=== PATIENT | female | born 1990 | race Caucasian/White ===

== ENCOUNTER 2016-11-29 14:12 | Emergency (ER) | payer OTHER ==
[2016-11-29 14:26] VITALS: TEMP 97.9
[2016-11-29] MEDS ORDERED: IBUPROFEN 800 MG TAB PO ONE (15:27)
--- NOTE | 2016-11-29 15:37 | UCPHY ---
H & P Time Seen by Provider: 11/29/16 14:59 Patient Type: Established HPI/ROS: HPI Dry cough, ear pain. 26-year-old female by private vehicle. She complains of a dry, nonproductive cough, ongoing for the last 2 weeks and intermittent in nature. She developed ear pain yesterday left side greater than right side. She denies any changes in hearing. No history of barotrauma. She has not had a fever. She also has had a mild sore throat for the last 2 weeks with her cough. ROS: Constitutional: No fever, no chills. No weakness. Eyes: No discharge. No changes in vision. ENT: As above. No nasal congestion or rhinorrhea. Respiratory: As. No shortness of breath. Cardiac: No chest pain, no palpitations. Gastrointestinal: No abdominal pain, no vomiting, no diarrhea. Genitourinary: No hematuria. No dysuria or increased frequency with urination. Musculoskeletal: No back pain. No neck pain. No myalgias or arthralgias. Skin: No rashes. Neurological: No headache. No focal weakness or altered sensation. Past medical history: Denies any significant past medical history. Social history: Here by herself. Physical Exam: General Appearance: Alert, no distress. This patient is responding to questions appropriately and in full sentences. This patient appears well- hydrated and well-nourished. Eyes: Pupils equal and round no pallor or injection. No lid edema, erythema or injection. ENT, Mouth: Mucous membranes are moist. The pharyngeal tissues are unremarkable. No edema or swelling. No asymmetry suggestive of abscess. No erythema or exudates. Right external auditory canal and tympanic membrane are normal on exam. Left external auditory canal is normal, the left tympanic membrane is erythematous and edematous with loss of landmarks and some previous scarring. Respiratory: There are no retractions, lungs are clear to auscultation with good air movement bilaterally. Cardiovascular: Regular rate and rhythm. No murmur. Neurological: Motor sensory function is grossly intact. Cranial nerves are normal. Gait is normal. Skin: Warm and dry, no rashes. Musculoskeletal: Neck is supple and nontender. No pain on flexion of the neck Extremities are symmetrical. All joints range without pain or impingement. Psychiatric: No agitation. No depression. Database: EKG: Imaging: Procedures: Emergency department course: Speculum exam of left ear indicates otitis media. Patient's presentation is consistent with a viral upper respiratory infection/bronchitis and left ear otitis media. Plan will be to treat her with amoxicillin. She was given 500 mg in the emergency department. I discussed amoxicillin dosing as well as ibuprofen dosing for her ear pain. She feels comfortable going home. She will follow up with her primary care physician in 1-2 days for re-evaluation. Return to emergency department precautions reviewed. All of her questions were answered. She was discharged in good condition. Differential Diagnosis: The differential diagnosis on this patient includes but is not limited to upper respiratory infection, bronchitis, otitis media. This represents a partial list of diagnoses considered. These considerations are based on history, physical exam, past history, reassessment and diagnostic testing. Smoking Status: Never smoked Constitutional: Initial Vital Signs Temperature (C) 36.6 C 11/29/16 14:23 Heart Rate 72 11/29/16 14:23 Respiratory Rate 18 11/29/16 14:23 Blood Pressure 158/66 H 11/29/16 14:23 O2 Sat (%) 97 11/29/16 14:23 O2 Delivery Mode Room Air Allergies/Adverse Reactions: No Known Allergies Allergy (Unverified 11/29/16 14:23) Home Medications: Medication Instructions Recorded Amoxicillin Trihydrate 500 mg PO Q6 #28 cap 11/29/16 [Amoxicillin 500mg cap] Bcp 11/29/16 LEVOTHYROXINE SODIUM [Tirosint 11/29/16 50mcg] Metformin HCl [Fortamet 1000 mg] 11/29/16 Departure - Departure Disposition: Home, Routine, Self-Care Clinical Impression: Bronchitis, Upper respiratory infection, Otitis media Condition: Good Instructions: Upper Respiratory Infection (ED), Otitis Media (ED) Additional Instructions: Read and follow provided instructions. Follow-up with your primary care physician in 1-2 days for re-evaluation. Take antibiotic as prescribed through entire course of treatment. [place]/Percocet dosin-2 every 4-6 hours for [address] Do not drive on this medication. Return to the emergency department for worsening ear pain, cough, high fever, facial swelling or other serious concerns. Referrals: Dwayne Chau MD [Primary Care Provider] - As per Instructions Prescriptions: Amoxicillin Trihydrate [Amoxicillin 500mg cap] 500 mg PO Q6 #28 cap - PQRS PQRS Measurement: Not applicable.
[2016-11-29] MEDS ORDERED: IBUPROFEN 600 MG TAB PO ONE (15:38)
[2016-11-29 16:04] VITALS: BP 152/77; PULSE 75; RESP 16; O2SAT 96
== END 2016-11-29 15:50 | disposition home or self-care (01) ==
LOC: CED 14:12
DX: J06.9 Acute upper respiratory infection, unspecified (principal); H66.92 Otitis media, unspecified, left ear
CPT/HCPCS: 99214-PO; G0463-PO